=== PATIENT | female | born 1960 | race Caucasian/White ===

== ENCOUNTER 2016-12-04 16:49 | Inpatient (IN) | payer BC, OTHER ==
[~2016-12-04] VITALS: Ht 154.9 cm; Wt 85.0 kg
[2016-12-04 16:50] VITALS: BP 186/108; PULSE 113; RESP 18; TEMP 99.6; O2SAT 97
[2016-12-04] MEDS ORDERED: IOHEXOL 350 MG/ML 10 ML VIAL (for RAD DIAG) IVCONTRAST ONE (16:50)
[2016-12-04] MEDS ORDERED: LISI20TA3 PO (18:23)
[2016-12-04] MEDS ORDERED: MORPHINE SULFATE 4 MG/ML INJ IV PUSH ONE (18:30)
[2016-12-04] MEDS ORDERED: SODIUM CHLOR 0.9% 1000 ML INJ 1,000 ML IV ONE (18:30)
[2016-12-04] MEDS ORDERED: VANCOMYCIN INJ 1,300 MG in SODIUM CHLORID 0.9% 500 ML INJ 500 ML IV ONE (18:30)
[2016-12-04 19:18] LABS: AUTOMATED NEUTROPHIL # 11.4 TH/MM3 (1.8-7.7); BASOPHIL # 0.1 TH/MM3 (0-0.2); BASOPHIL % 0.7 % (0.0-2.0); EOSINOPHIL # 0.1 TH/MM3 (0-0.4); EOSINOPHIL % 0.5 % (0.0-4.0); HEMATOCRIT 41.7 % (35.0-46.0); HEMO FLAGS DIFF FINAL; LYMPH % 14.7 % (9.0-44.0); LYMPHOCYTE # 2.1 TH/MM3 (1.0-4.8); MEAN CELL VOLUME 95.3 FL (80.0-100.0); MEAN CORPUSCULAR HEMOGLOBIN 32.6 PG (27.0-34.0); MEAN CORPUSCULAR HGB CONC 34.2 % (32.0-36.0); MONO % 5.5 % (0.0-8.0); NEUT % 78.6 % (16.0-70.0); PLATELET COUNT 287 TH/MM3 (150-450); RED BLOOD COUNT 4.38 MIL/MM3 (4.00-5.30); RED CELL DISTRIBUTION WIDTH 12.7 % (11.6-17.2); WHITE BLOOD COUNT 14.5 TH/MM3 (4.0-11.0)
[2016-12-04 19:24] LABS: APTT (PATIENT) 26.8 SEC (24.3-30.1); PROTHROMBIN TIME - PATIENT 11.4 SEC (9.8-11.6)
[2016-12-04 19:32] LABS: ANION GAP 7 MEQ/L (5-15); AST (GOT) 17 U/L (15-37); BICARBONATE 29.5 MEQ/L (21.0-32.0); BLOOD UREA NITROGEN 10 MG/DL (7-18); CHLORIDE 98 MEQ/L (98-107); GLOMERULAR FILTRATION RATE 72 ML/MIN (>89); POTASSIUM 3.7 MEQ/L (3.5-5.1); SODIUM (NA) 134 MEQ/L (136-145)
[2016-12-04 19:33] LABS: ALT (GPT) 23 U/L (10-53)
[2016-12-04 19:35] LABS: ALKALINE PHOSPHATASE 84 U/L (45-117); TOTAL BILIRUBIN ADULT 0.6 MG/DL (0.2-1.0)
--- NOTE | 2016-12-04 20:18 | RADRPT ---
EXAM DATE/TIME: 12/04/2016 19:57 [place] COMPARISON: No previous studies available for comparison. INDICATIONS : Abscess tooth IV CONTRAST: 70 cc Omnipaque 350 (iohexol) IV RADIATION DOSE: 38.39 CTDIvol (mGy) MEDICAL HISTORY : None SURGICAL HISTORY : Appendectomy. Cholecystectomy.Hysterectomy. ENCOUNTER: Initial ACUITY: 1 day PAIN SCALE: 10/10 LOCATION: Right facial TECHNIQUE: Volumetric scanning of the facial bones was performed. Using automated exposure control and adjustme nt of the mA and/or kV according to patient size, radiation dose was kept as low as reasonably achiev able to obtain optimal diagnostic quality images. DICOM format image data is available electronicall y for review and comparison. FINDINGS: ORBITS: The orbital and infraorbital osseous structures are intact. The retroconal structures have a normal configuration. No radiopaque foreign bodies are seen. NASAL BONE: The nasal bone and maxillary spine are intact ZYGOMATIC ARCHES: Symmetric without evidence of fracture. SINUSES: The maxillary, ethmoid and frontal sinuses are intact. No air-fluid levels seen. NASAL CAVITY: The nasal septum is intact and midline. The lacrimal ducts are intact. SOFT TISSUES: There are nonspecific inflammatory changes in the soft tissues along the right mandible and deep as w ell as subcutaneous fat without organized abscess. INTRACRANIAL: No intracranial air seen. CRIBIFORM PLATE: Grossly intact. CONCLUSION: Nonspecific soft tissue inflammatory change along the right mandible both deep and superficial soft t issues without abscess formation or fluid collection. Could be related to dental disease Otoniel Myers MD on December 04, 2016 at 20:14 Board Certified Radiologist. This report was verified electronically.
[2016-12-04] MEDS ORDERED: MORPHINE SULFATE 2 MG/ML INJ IV PUSH ONE (20:45)
[2016-12-04] MEDS ORDERED: MORPHINE SULFATE 2 MG/ML INJ IV PUSH PRN (21:15)
[2016-12-04] MEDS ORDERED: SODIUM CHLORIDE 0.9% FLUSH 10 ML FLUSH IV FLUSH PRN (21:15)
[2016-12-04] MEDS ORDERED: NALOXONE HCL 0.4 MG/ML AMP IV PUSH PRN (21:15)
[2016-12-04 22:04] VITALS: BP 123/68; PULSE 107; RESP 14; O2SAT 98
--- NOTE | 2016-12-04 22:38 | PD ---
HPI Chief Complaint: Oral / Dental Pain or Problem Time Seen by Provider: 18:20 Travel History International Travel<30 days: No Contact w/Intl Traveler<30days: No Traveled to known affect area: No History of Present Illness HPI This is a 56-year-old female who presents to the emergency department with right sided facial swelling and pain, constant, moderate severity, that started yesterday and has rapidly progressed today. She went to see a dentist and he told her to come to the emergency department because he was concerned she may progress to bloodstream infection. She says she does feel feverish. She denies any difficulty swallowing or breathing. [facility] Past Medical History Hypertension: Yes Past Surgical History Abdominal Surgery: Yes (CHOLECTOMY) Appendectomy: Yes Gynecologic Surgery: Yes (OOPHERECTOMY) Social History Alcohol Use: No Tobacco Use: No (QUIT) Substance Use: No Allergies-Medications (Allergen,Severity, Reaction): Coded Allergies: No Known Allergies (Unverified , 12/04/16) Reported Meds & Prescriptions Reported Meds & Active Scripts Active Reported Lisinopril-Hctz 20-25 Mg Tab 1 Tab PO DAILY Review of Systems Except as stated in HPI: all other systems reviewed are Neg Physical Exam Narrative GENERAL:Well appearing, no acute distress SKIN: Focused skin assessment warm and dry. HEAD: Atraumatic. Normocephalic. EYES: Pupils equal and round. No injection or drainage. ENT: Moist mucous membranes. Fullness, erythema and warmth of the right mandible with no submental swelling or sublingual swelling. NECK: Trachea midline. CARDIOVASCULAR: Regular rate and rhythm. No murmur appreciated. RESPIRATORY: Clear to auscultation. Breath sounds equal bilaterally. GASTROINTESTINAL: Abdomen soft, non-tender, nondistended. MUSCULOSKELETAL: No obvious deformities. NEUROLOGICAL: Awake and alert. No obvious cranial nerve deficits. Moving all extremities. PSYCHIATRIC: Appropriate mood and affect; insight and judgment normal. Data Data Last Documented VS Vital Signs Date Time Temp Pulse Resp B/P (MAP) Pulse Ox O2 Delivery O2 Flow Rate FiO2 12/04/16 16:50 99.6 113 18 186/108 (134) 97 Orders Orders Complete Blood Count With Diff (12/04/16 18:24) Comprehensive Metabolic Panel (12/04/16 18:24) ^ Insert Iv (12/04/16 18:24) Prothrombin Time / Inr (Pt) (12/04/16 18:24) Act Partial Throm Time (Ptt) (12/04/16 18:24) Blood Culture (12/04/16 18:24) Sodium Chlor 0.9% 1000 Ml Inj (Ns 1000 M (12/04/16 18:30) Lactic Acid (12/04/16 18:24) Vancomycin Inj (Vancomycin Inj) (12/04/16 18:30) Morphine Inj (Morphine Inj) (12/04/16 18:30) Ct Facial Bones W Iv Contrast (12/04/16 ) Iohexol 350 Inj (Omnipaque 350 Inj) (12/04/16 16:50) Morphine Inj (Morphine Inj) (12/04/16 20:45) Admit Order (Ed Use Only) (12/04/16 20:57) Labs Laboratory Tests Test 12/04/16 18:45 White Blood Count 14.5 TH/MM3 Red Blood Count 4.38 MIL/MM3 Hemoglobin 14.3 GM/DL Hematocrit 41.7 % Mean Corpuscular Volume 95.3 FL Mean Corpuscular Hemoglobin 32.6 PG Mean Corpuscular Hemoglobin Concent 34.2 % Red Cell Distribution Width 12.7 % Platelet Count 287 TH/MM3 Mean Platelet Volume 8.8 FL Neutrophils (%) (Auto) 78.6 % Lymphocytes (%) (Auto) 14.7 % Monocytes (%) (Auto) 5.5 % Eosinophils (%) (Auto) 0.5 % Basophils (%) (Auto) 0.7 % Neutrophils # (Auto) 11.4 TH/MM3 Lymphocytes # (Auto) 2.1 TH/MM3 Monocytes # (Auto) 0.8 TH/MM3 Eosinophils # (Auto) 0.1 TH/MM3 Basophils # (Auto) 0.1 TH/MM3 CBC Comment DIFF FINAL Differential Comment Prothrombin Time 11.4 SEC Prothromb Time International Ratio 1.0 RATIO Activated Partial Thromboplast Time 26.8 SEC Blood Urea Nitrogen 10 MG/DL Creatinine 0.82 MG/DL Random Glucose 153 MG/DL Total Protein 8.3 GM/DL Albumin 4.2 GM/DL Calcium Level 9.7 MG/DL Alkaline Phosphatase 84 U/L Aspartate Amino Transf (AST/SGOT) 17 U/L Alanine Aminotransferase (ALT/SGPT) 23 U/L Total Bilirubin 0.6 MG/DL Sodium Level 134 MEQ/L Potassium Level 3.7 MEQ/L Chloride Level 98 MEQ/L Carbon Dioxide Level 29.5 MEQ/L Anion Gap 7 MEQ/L Estimat Glomerular Filtration Rate 72 ML/MIN Lactic Acid Level 1.3 mmol/L MDM Medical Decision Making Medical Screen Exam Complete: Yes Emergency Medical Condition: Yes Interpretation(s) Temperature is 99.6, tachycardic, hypertensive Leukocytosis electrolytes within normal limits Last [address] 12/04/16 0000 Signed Impressions: Service Date/Time: November 19:57 - CONCLUSION: Nonspecific soft tissue inflammatory change along the right mandible both deep and superficial soft tissues without abscess formation or fluid collection. Could be related to dental disease Otoniel Myers MD Differential Diagnosis Abscess, cellulitis, Rios angina, sepsis Narrative Course This is a 56-year-old female who presents to the emergency department with swelling and pain involving her right mandible. She likely has a dental abscess. Labs are obtained which demonstrate a leukocytosis. She was given one dose of vancomycin in the emergency department in the setting of tachycardia and leukocytosis. CT demonstrates soft tissue swelling but no definitive abscess and no signs of Rios's angina. She will be admitted to the hospitalist service for antibiotic therapy Physician Communication Physician Communication Discussed with Dr. Salazar Diagnosis Primary Impression: Dental infection Admitting Information Admitting Physician Requests: Observation Iman Deleon MD Dec 04, 2016 22:38
--- NOTE | 2016-12-04 22:52 | HHI.HP ---
HPI Service [facility] Primary Care Physician Cornelio Lynne M.D. Admission Diagnosis dental infection Diagnoses: Chief Complaint: Right mandibular pain and swelling Travel History International Travel<30 Days: No Contact w/Intl Traveler <30 Da: No Traveled to Known Affected Are: No History of Present Illness Written by Shruthi Ortiz, acting as scribe for Dr. Salazar on 12/04/16 at 22:52. The patient has a "broken" tooth (#30) that she's been having problems with. The patient states she saw her dentist (Dr. Estrada in [place]) and he referred her to an OMFS to drain a presumed abscess. The [place] [facility] said he could not get her in and referred her to the ER here at [facility]. Right mandible swelling with severe pain not relieved by over the counter acetaminophen, aleve, or local anesthetics. Pain is "throbbing" and improved with Morphine 4 mg IV but not at all with Morphine 2 mg IV. Symptoms started last night (12/03/16). Temperature of 99. Bleeding this a.m. when brushed teeth. Denies any purulent exudate from the area. Denies any dental implants. Past two weeks: denies chest pain, cough, shortness of breath, syncope, nausea, vomiting, diarrhea, black stool or red stool. Review of Systems Except as stated in HPI: all other systems reviewed are Neg Past Family Social History Past Medical History Hypertension Diverticulitis s/p oliver-colectomy Denies diabetes, valvular heart disease, CAD, [place], breathing problems, liver or kidney problems, PE, DVT, CVA, seizures, or thyroid problems . Past Surgical History Oliver-colectomy, Appendectomy, Oophorectomy October 2014 Cholecystectomy Lithotripsy . Reported Medications Reported Meds & Active Scripts Active Reported Lisinopril-Hctz 20-25 Mg Tab 1 Tab PO DAILY . Allergies: Coded Allergies: No Known Allergies (Unverified , 12/04/16) Active Ordered Medications Current Medications Sodium Chloride 1,000 ml @ 999 mls/hr BOLUS ONCE IV Last administered on t 18:52; Start 12/04/16 at 18:30; Stop 12/04/16 at 19:30; Status DC Vancomycin HCl 1300 mg/Sodium Chloride 513 ml @ 250 mls/hr ONCE ONCE IV Last administered on 12/04/16 18:52; Start 12/04/16 at 18:30; Stop 12/04/16 at 20 :33; Status DC Morphine Sulfate (Morphine Inj) 4 mg ONCE ONCE IV PUSH Last administered on 18:53; Start 12/04/16 at 18:30; Stop 12/04/16 at 18:31; Status DC Iohexol (Omnipaque 350 Inj) 70 ml STK-MED ONCE IVCONTRAST Last administered on 12/04/16 16:50; Start 12/04/16 at 16:50; Stop 12/04/16 at 20:02; Status DC Morphine Sulfate (Morphine Inj) 2 mg ONCE ONCE IV PUSH Last administered on 21:11; Start 12/04/16 at 20:45; Stop 12/04/16 at 20:46; Status DC Sodium Chloride (NS Flush) 2 ml UNSCH PRN IV FLUSH FLUSH AFTER USING IV ACCESS ; Start 12/04/16 at 21:15 Sodium Chloride (NS Flush) 2 ml BID IV FLUSH ; Start 12/05/16 at 09:00 Naloxone HCl (Narcan Inj) 0.4 mg UNSCH PRN IV PUSH SEE LABEL COMMENTS; Start 12/04/16 at 21:15 Ampicillin Sodium/ Sulbactam Sodium 3 gm/Sodium Chloride 100 ml @ 200 mls/hr Q6H IV ; Start 12/04/16 at 22:00 Morphine Sulfate (Morphine Inj) 2 mg Q3H PRN IV PUSH PAIN >5 Last administered on 12/04/16 21:39; Start 12/04/16 at 21:15 . Family History Mother with cervical cancer Father with ALS . Social History Tobacco: quit 3 years ago Alcohol: denies Illicit Drugs: denies . Physical Exam Vital Signs Vital Signs Date Time Temp Pulse Resp B/P (MAP) Pulse Ox O2 Delivery O2 Flow Rate FiO2 12/04/16 22:04 107 14 123/68 (86) 98 Room Air 12/04/16 16:50 99.6 113 18 186/108 (134) 97 Physical Exam GENERAL: This is a overweight female patient, in no apparent distress. SKIN: No rashes. Cool and dry. HEAD: Atraumatic. Normocephalic. EYES: No scleral icterus. No injection or drainage. ENT: Nose without bleeding, purulent drainage or septal hematoma. Airway patent. Right mandible with significant tenderness and edema. NECK: Trachea midline. No JVD. CARDIOVASCULAR: Regular rate and rhythm without murmurs, gallops, or rubs. RESPIRATORY: Clear to auscultation. Breath sounds equal bilaterally. No wheezes , rales, or rhonchi. GASTROINTESTINAL: Abdomen soft, non-tender, nondistended. No guarding. MUSCULOSKELETAL: Extremities without clubbing, cyanosis, or edema. No calf tenderness. NEUROLOGICAL: Awake and alert. Motor and sensory grossly within normal limits. Normal speech. . Laboratory Laboratory Tests Test 12/04/16 18:45 White Blood Count 14.5 Red Blood Count 4.38 Hemoglobin 14.3 Hematocrit 41.7 Mean Corpuscular Volume 95.3 Mean Corpuscular Hemoglobin 32.6 Mean Corpuscular Hemoglobin Concent 34.2 Red Cell Distribution Width 12.7 Platelet Count 287 Mean Platelet Volume 8.8 Neutrophils (%) (Auto) 78.6 Lymphocytes (%) (Auto) 14.7 Monocytes (%) (Auto) 5.5 Eosinophils (%) (Auto) 0.5 Basophils (%) (Auto) 0.7 Neutrophils # (Auto) 11.4 Lymphocytes # (Auto) 2.1 Monocytes # (Auto) 0.8 Eosinophils # (Auto) 0.1 Basophils # (Auto) 0.1 CBC Comment DIFF FINAL Differential Comment Prothrombin Time 11.4 Prothromb Time International Ratio 1.0 Activated Partial Thromboplast Time 26.8 Blood Urea Nitrogen 10 Creatinine 0.82 Random Glucose 153 Total Protein 8.3 Albumin 4.2 Calcium Level 9.7 Alkaline Phosphatase 84 Aspartate Amino Transf (AST/SGOT) 17 Alanine Aminotransferase (ALT/SGPT) 23 Total Bilirubin 0.6 Sodium Level 134 Potassium Level 3.7 Chloride Level 98 Carbon Dioxide Level 29.5 Anion Gap 7 Estimat Glomerular Filtration Rate 72 Lactic Acid Level 1.3 Date/Time Source Procedure Growth Status 12/04/16 18:40 Blood Peripheral Aerobic Blood Culture Pending Received 12/04/16 18:40 Blood Peripheral Anaerobic Blood Culture Pending Received Result Diagram: 12/04/16 8676 12/04/16 1845 Imaging Last Impressions Maxillofacial CT 12/04/16 0000 Signed Impressions: Service Date/Time: November 19:57 - CONCLUSION: Nonspecific soft tissue inflammatory change along the right mandible both deep and superficial soft tissues without abscess formation or fluid collection. Could be related to dental disease MD Angelica Irivn VTE Risk Assessment Caprini VTE Risk Assessment: Mod/High Risk (score >= 2) Caprini Risk Assessment Model Point Value = 1 Point Value = 2 Point Value = 3 Point Value = 5 Age 41-60 Minor surgery BMI > 25 kg/m2 Swollen legs Varicose veins or History of unexplained or recurrent spontaneous Oral contraceptives or hormone replacement Sepsis (< 1 month) Serious lung disease, including pneumonia (< 1 month) Abnormal pulmonary function Acute myocardial infarction Congestive heart failure (< 1 month) History of inflammatory bowel disease Medical patient at bed rest Age 61-74 Arthroscopic surgery Major open surgery (> 45 min) Laparoscopic surgery (> 45 min) Malignancy Confined to bed (> 72 hours) Immobilizing plaster cast Central venous access Age >= 75 History of VTE Family history of VTE Factor V Leiden Prothrombin [id number] Lupus anticoagulant Anticardiolipin antibodies Elevated serum homocysteine Heparin-induced thrombocytopenia Other congenital or acquired thrombophilia Stroke (< 1 month) Elective arthroplasty Hip, pelvis, or leg fracture Acute spinal cord injury (< 1 month) Prophylaxis Regimen Total Risk Factor Score Risk Level Prophylaxis Regimen 0-1 Low Early ambulation 2 Moderate Order ONE of the following: *Sequential Compression Device (SCD) *Heparin 5000 units SQ BID 3-4 Higher Order ONE of the following medications: *Heparin 5000 units SQ TID *Enoxaparin/Lovenox 40 mg SQ daily (WT < 150 kg, CrCl > 30 mL/min) *Enoxaparin/Lovenox 30 mg SQ daily (WT < 150 kg, CrCl > 10-29 mL/min) *Enoxaparin/Lovenox 30 mg SQ BID (WT < 150 kg, CrCl > 30 mL/min) AND/OR *Sequential Compression Device (SCD) 5 or more Highest Order ONE of the following medications: *Heparin 5000 units SQ TID (Preferred with Epidurals) *Enoxaparin/Lovenox 40 mg SQ daily (WT < 150 kg, CrCl > 30 mL/min) *Enoxaparin/Lovenox 30 mg SQ daily (WT < 150 kg, CrCl > 10-29 mL/min) *Enoxaparin/Lovenox 30 mg SQ BID (WT < 150 kg, CrCl > 30 mL/min) AND *Sequential Compression Device (SCD) Assessment and Plan Problem List: (1) Dental infection ICD Code: K04.7 - Periapical abscess without sinus Status: Acute Assessment and Plan Right mandibular infection Suspect Abscess - Maxillofacial CT showed nonspecific soft tissue inflammatory changes seen right mandible area in both deep and superficial tissues without abscess or fluid collection seen - history and exam c/w abscess however. - Antibiotics: Unasyn 3 grams IV q6h - Decadron 10 mg IV x 1 dose, then 4 mg IV q6h - verbally ordered - Morphine will be increased to 4 mg IV q3h PRN pain > 5 - verbally ordered - consult OMFS - discussed with ER MD- she will write an email to ER director, Hospitalist director and FRONT ATTENDANT to inform of the patient's case so that pt will be seen by maxilofacial surgeon tomorrow am per hospital consult policy. GI prophylaxis - Protonix 40 mg IV q24h - verbally ordered DVT prophylaxis - SCDs/TEDs verbally ordered . This note was transcribed by scribyoav [Shruthi Ortiz]. I, Dr. Chio Salazar personally performed the history, physical exam, and medical decision making; and confirmed the accuracy of the information in the transcribed note. Authenticated by Dr. Chio Salazar on 12/04/16 at 22:52. Discussed Condition With ER physician, patient, and patient's . Shruthi Ortiz Dec 04, 2016 22:52 Chio Salazar MD Dec 05, 2016 01:33
[2016-12-04] MEDS ORDERED: DEXAMETHASONE SOD PHOS 20 MG/5 ML VIAL IV PUSH ONE (23:00)
[2016-12-04 23:04] VITALS: BP 127/66; PULSE 100; RESP 16; TEMP 101; O2SAT 95
[2016-12-04] MEDS: PANTOPRAZOLE SODIUM 40 MG VIAL IV PUSH SCH (23:50)
[2016-12-04] MEDS: AMPICILLIN-SULBACTAM INJ 3 GM in SODIUM CHLORIDE 0.9% INJ 100 ML IV SCH (23:50)
[2016-12-05 03:51] VITALS: PULSE 85
[2016-12-05 04:35] VITALS: BP 115/59; PULSE 80; RESP 17; TEMP 99.7; O2SAT 93
[2016-12-05] MEDS: AMPICILLIN-SULBACTAM INJ 3 GM in SODIUM CHLORIDE 0.9% INJ 100 ML IV SCH ×4 (05:31→23:21)
[2016-12-05] MEDS: DEXAMETHASONE SOD PHOS 4 MG/ML VIAL IV PUSH SCH ×3 (05:32→16:00)
[2016-12-05] MEDS: MORPHINE SULFATE 4 MG/ML INJ IV PRN ×6 (05:32→23:19)
[2016-12-05 08:00] VITALS: PULSE 76
[2016-12-05 08:08] LABS: AUTOMATED NEUTROPHIL # 9.2 TH/MM3 (1.8-7.7); BASOPHIL % 0.2 % (0.0-2.0); HEMATOCRIT 38.4 % (35.0-46.0); HEMO FLAGS DIFF FINAL; LYMPH % 9.6 % (9.0-44.0); MEAN CELL VOLUME 94.6 FL (80.0-100.0); MEAN CORPUSCULAR HEMOGLOBIN 32.1 PG (27.0-34.0); MEAN CORPUSCULAR HGB CONC 33.9 % (32.0-36.0); MONO % 1.1 % (0.0-8.0); NEUT % 89.1 % (16.0-70.0); PLATELET COUNT 279 TH/MM3 (150-450); RED BLOOD COUNT 4.06 MIL/MM3 (4.00-5.30); RED CELL DISTRIBUTION WIDTH 12.6 % (11.6-17.2); WHITE BLOOD COUNT 10.3 TH/MM3 (4.0-11.0)
[2016-12-05 08:16] LABS: BICARBONATE 26.4 MEQ/L (21.0-32.0); POTASSIUM 3.6 MEQ/L (3.5-5.1)
[2016-12-05 08:23] VITALS: BP 133/72; PULSE 87; RESP 18; TEMP 98.3; O2SAT 91
[2016-12-05] MEDS: LISINOPRIL 20 MG TAB PO SCH (08:29)
[2016-12-05] MEDS: SODIUM CHLORIDE 0.9% FLUSH 10 ML FLUSH IV FLUSH SCH ×2 (08:30→21:00)
[2016-12-05] MEDS: SODIUM CHLOR 0.9% 1000 ML INJ 1,000 ML IV SCH (08:31)
[2016-12-05 10:54] VITALS: BP 114/58; PULSE 80; RESP 16; TEMP 98.4; O2SAT 94
[2016-12-05] MEDS ORDERED: PHENYLEPH/NS 1000 MCG/10 ML SYR IV ONE (12:00)
[2016-12-05] MEDS ORDERED: ONDANSETRON HCL 4 MG/2 ML VIAL IV PUSH ONE (12:00)
[2016-12-05] MEDS ORDERED: DEXAMETHASONE SOD PHOS 4 MG/ML VIAL IV ONE (12:00)
[2016-12-05] MEDS ORDERED: LIDOCAINE HCL 1% PF 5 ML AMPULE OTHER ONE (12:00)
[2016-12-05] MEDS ORDERED: SUCCINYLCHOLINE CHLORIDE 100 MG/5 ML SYRINGE IV PUSH ONE (12:00)
[2016-12-05] MEDS ORDERED: PROPOFOL 200 MG/20 ML AMP IV ONE (12:00)
[2016-12-05] MEDS ORDERED: ROCURONIUM INJ 50 MG/5 ML SYRINGE IV PUSH ONE (12:00)
--- NOTE | 2016-12-05 13:11 | HHI.PR ---
Subjective Remarks Follow up for right sided mandibular infection. Patient reports feeling better today. Prior to coming to the hospital, she had more swelling, erythema and her lips skin was tightened. She reports no airway issues and able to tolerate soft diet and liquids. No fever, chills. Objective Vitals Vital Signs Date Time Temp Pulse Resp B/P (MAP) Pulse Ox O2 Delivery O2 Flow Rate FiO2 12/05/16 10:54 98.4 80 16 114/58 (76) 94 12/05/16 08:23 98.3 87 18 133/72 (92) 91 12/05/16 08:00 76 12/05/16 04:35 99.7 80 17 115/59 (77) 93 12/05/16 03:51 85 12/04/16 23:04 101.0 100 16 127/66 (86) 95 12/04/16 22:35 12/04/16 22:04 107 14 123/68 (86) 98 Room Air 12/04/16 16:50 99.6 113 18 186/108 (134) 97 I/O 12/04/16 12/04/16 12/04/16 12/05/16 12/05/16 12/05/16 07:00 15:00 23:00 07:00 15:00 23:00 Intake Total 1500 ml 450 ml Output Total 200 ml Balance 1500 ml 250 ml Intake Oral 250 ml IV Total 1500 ml 200 ml Output Urine Total 200 ml Result Diagram: 12/05/16 0655 12/05/16 0704 Imaging Last Impressions Maxillofacial CT 12/04/16 0000 Signed Impressions: Service Date/Time: November 19:57 - CONCLUSION: Nonspecific soft tissue inflammatory change along the right mandible both deep and superficial soft tissues without abscess formation or fluid collection. Could be related to dental disease Otoniel Myers MD Objective Remarks GENERAL: Alert, Oriented x 3, NAD. SKIN: Warm and dry. HEAD: Normocephalic. Right mandibular area is tender to palpation and swollen. There is some exudates along her gum and right lower posterior teeth. No bleeding. EYES: No scleral icterus. No injection or drainage. NECK: Supple, trachea midline. No JVD or lymphadenopathy. CARDIOVASCULAR: Regular rate and rhythm without murmurs, gallops, or rubs. RESPIRATORY: Breath sounds equal bilaterally. No accessory muscle use. GASTROINTESTINAL: Abdomen soft, non-tender, nondistended. MUSCULOSKELETAL: No cyanosis, or edema. BACK: Nontender without obvious deformity. No CVA tenderness. A/P Problem List: (1) Dental infection ICD Code: K04.7 - Periapical abscess without sinus Status: Acute Assessment and Plan Ms. Spencer is a pleasant 56 year old female who was evaluated by her dentist in [place] for possible dental abscess. She was referred to an outpatient oral surgeon. Unfortunately, the oral surgeon could not see her and instead referred her to [place]. Patient reported significant erythema, swelling and pain of her right mandibular area. She reports that this is one of the most painful experiences she has ever dealt with. - Right sided mandibular infection. - CT scan showed no abscess. Patient is currently on Unasyn 3g Q6hrs. - We do not have access to an oral surgery consult today. - We contacted Plastic surgery (Dr. Meraz) who has been kind enough to consider doing I&D today. - Patient will likely need IV abx and then oral Augmentin. She can then follow up with her dentist to extract affected teeth. - Will d/c Decadron. - Continue Morphine IV for pain. Will switch to Oral Pain medications tomorrow. - Hypertension - Continue Lisinopril 20mg Qday. - GERD - continue PPI. Full code. SCDs, Ambulation. Discharge plan: Possible discharge over the weekend. Anne Marie Byrd DO Dec 05, 2016 13:11
[2016-12-05] MEDS ORDERED: LACTATED RINGER'S 1000 ML IV PRN (16:45)
[2016-12-05] MEDS ORDERED: CHLORHEXIDINE GLUCONATE 2 % 1 PACK (2 CLOTHS) TOPICAL PRN (16:45)
[2016-12-05] MEDS ORDERED: METOPROLOL TARTRATE 25 MG TAB PO PRN ×2 (16:45→21:45)
[2016-12-05] MEDS ORDERED: INSULIN HUMAN REGULAR 1,000 UNITS/10 ML VIAL SQ PRN ×2 (16:45→21:45)
[2016-12-05] MEDS ORDERED: POVIDONE IODINE 5% (ANTISEPSIS KIT) 4 APPLICATIONS EACH NARE PRN ×2 (16:45→21:45)
[2016-12-05] MEDS ORDERED: SODIUM CHLORID 0.9% 500 ML IV PRN (16:45)
[2016-12-05 16:54] VITALS: BP 117/62; PULSE 72; RESP 18; TEMP 98.4; O2SAT 95
[2016-12-05] MEDS ORDERED: LIDOCAINE 1%/EPINEPHrine 1:100,000 SOLN 50 ML VIAL ONE (18:20)
[2016-12-05] MEDS ORDERED: BACITRACIN TOP OINT 15 GM TUBE ONE (18:20)
[2016-12-05] MEDS ORDERED: BUPIVACAINE/EPINEPHRINE 0.5% 50 ML VIAL ONE (18:20)
[2016-12-05] MEDS ORDERED: BUPIVACAINE HCL PF 0.5% 30 ML VIAL ONE (18:20)
--- NOTE | 2016-12-05 21:37 | PD.OP ---
Operative Report Right side dental abscess in gingivolabial sulcus soft tissue premolar area mandible Postoperative Diagnosis: Right side dental abscess in gingivolabial sulcus soft tissue premolar area mandible Procedure: Incision and drainage Right side mandible gingivolabial sulcus abscess premolar area Anesthesia: gen Surgeon: Parminder Meraz Rn Medicare(s): rn Resident Surgeon: none Operation and Findings: Prep done Time out done Airway protected by ET cuff Right side lower jaw abscess against the premolar area injected all soft tissues surrounding it with Sensorcaine 0.5% with Epi 5 cc Opened the abscess with coag bovie - 2 cc pus was recovered, culture taken, pus was thick creamy yellow, no smell, no gas. no blood. Cavity curetted, irrigated and cauterized and packed with iodoform strip. Part of strip taped to outside the mouth to chin Minimal Bleeding No complications. Praminder Meraz MD Dec 05, 2016 21:37
[2016-12-05] MEDS ORDERED: DO NOT ADM ANY ANTICOAGULANT DRUGS PRN (21:59)
[2016-12-05] MEDS: PANTOPRAZOLE SODIUM 40 MG VIAL IV PUSH SCH (23:20)
[2016-12-06] VITALS (8 sets, daily range): BP systolic 99–170; BP diastolic 54–76; PULSE 66–97; RESP 18–21; TEMP 97.6–98.4; O2SAT 94–100
[2016-12-06] MEDS: MORPHINE SULFATE 4 MG/ML INJ IV PRN ×3 (03:10→16:25)
[2016-12-06] MEDS: AMPICILLIN-SULBACTAM INJ 3 GM in SODIUM CHLORIDE 0.9% INJ 100 ML IV SCH ×4 (03:11→21:02)
[2016-12-06] MEDS: SODIUM CHLOR 0.9% 1000 ML INJ 1,000 ML IV SCH ×3 (03:13→21:01)
[2016-12-06] MEDS: SODIUM CHLORIDE 0.9% FLUSH 10 ML FLUSH IV FLUSH SCH ×2 (08:31→21:02)
[2016-12-06] MEDS: LISINOPRIL 20 MG TAB PO SCH (08:31)
[2016-12-06] MEDS ORDERED: ACETAMINOPHEN 500 MG CPLT PO PRN (09:45)
[2016-12-06] MEDS ORDERED: PNEUMOCOCCAL POLYVALENT INJ 25 MCG/0.5 ML SYR IM ONE (10:00)
[2016-12-06] MEDS ORDERED: INFLUENZA VIRUS VACCINE (QUADRIVALENT) 0.5 ML SYR IM ONE (10:00)
--- NOTE | 2016-12-06 14:33 | HHI.PR ---
Subjective Remarks Follow-up for right-sided dental abscess. Patient is currently doing well. She will underwent I&D yesterday. No fever or chills. Objective Vitals Vital Signs Date Time Temp Pulse Resp B/P (MAP) Pulse Ox O2 Delivery O2 Flow Rate FiO2 12/06/16 12:00 97.8 69 18 136/76 (96) 100 12/06/16 08:00 97.7 68 18 118/59 (78) 96 12/06/16 07:40 96 21 12/06/16 04:40 97.6 67 20 99/57 (71) 94 12/06/16 00:00 98.3 97 21 111/62 (78) 94 12/05/16 22:00 100 21 105/59 (74) 92 Nasal Cannula 2 12/05/16 21:45 112 22 113/56 (75) 93 Nasal Cannula 2 12/05/16 21:41 97.8 116 18 115/58 (77) 91 Nasal Cannula 2 12/05/16 19:00 97.5 82 10 132/79 (96) 95 12/05/16 16:54 98.4 72 18 117/62 (80) 95 I/O 12/05/16 12/05/16 12/05/16 12/06/16 12/06/16 12/06/16 07:00 15:00 23:00 07:00 15:00 23:00 Intake Total 810 ml 532 ml 547 ml 100 ml Output Total 200 ml 5 ml Balance 610 ml 532 ml 542 ml 100 ml Intake Oral 610 ml IV Total 200 ml 532 ml 447 ml 100 ml Other 100 ml Output Urine Total 200 ml Estimated Blood Loss 5 ml # Voids 2 2 2 # Bowel Movements 0 0 Result Diagram: 12/05/16 0655 12/05/16 0704 Imaging Last Impressions Maxillofacial CT 12/04/16 0000 Signed Impressions: Service Date/Time: November 19:57 - CONCLUSION: Nonspecific soft tissue inflammatory change along the right mandible both deep and superficial soft tissues without abscess formation or fluid collection. Could be related to dental disease Otoniel Myers MD Objective Remarks GENERAL: Alert, Oriented x 3, NAD. SKIN: Warm and dry. HEAD: Normocephalic. Right mandibular area is tender to palpation and swollen. There is some exudates along her gum and right lower posterior teeth. No bleeding. EYES: No scleral icterus. No injection or drainage. NECK: Supple, trachea midline. No JVD or lymphadenopathy. CARDIOVASCULAR: Regular rate and rhythm without murmurs, gallops, or rubs. RESPIRATORY: Breath sounds equal bilaterally. No accessory muscle use. GASTROINTESTINAL: Abdomen soft, non-tender, nondistended. MUSCULOSKELETAL: No cyanosis, or edema. BACK: Nontender without obvious deformity. No CVA tenderness. A/P Problem List: (1) Dental infection ICD Code: K04.7 - Periapical abscess without sinus Status: Acute Assessment and Plan Ms. Spencer is a pleasant 56 year old female who was evaluated by her dentist in [place] for possible dental abscess. She was referred to an outpatient oral surgeon. Unfortunately, the oral surgeon could not see her and instead referred her to [place]. Patient reported significant erythema, swelling and pain of her right mandibular area. She reports that this is one of the most painful experiences she has ever dealt with. - Right sided mandibular infection. - CT scan showed no abscess. Patient is currently on Unasyn 3g Q6hrs. - Plastic surgery performed I&D on 12/05/2016. - Continue IV Unasyn today. We'll start Augmentin tomorrow. - Likely discharge tomorrow with outpatient dental follow-up. - Start acetaminophen, Percocet, morphine when necessary for pain management. - Hypertension - Continue Lisinopril 20mg Qday. - GERD - continue PPI. Full code. SCDs, Ambulation. Discharge plan: Possible discharge over the weekend. Anne Marie Byrd DO Dec 06, 2016 2:33 pm
[2016-12-06] MEDS: oxyCODONE/ACETAMINOPHEN 7.5 MG/325 MG TAB PO PRN ×2 (14:38→21:03)
[2016-12-06] MEDS ORDERED: LACTATED RINGER'S 1000 ML INJ 1,000 ML IV PRN (16:45)
[2016-12-06] MEDS ORDERED: SODIUM CHLORID 0.9% 500 ML INJ 500 ML IV PRN (16:45)
--- NOTE | 2016-12-06 17:23 | EKG ---
Date Performed: 12/05/2016 Time Performed: 16:40:20 PTAGE: 56 years EKG: Sinus rhythm NORMAL ECG NO PREVIOUS TRACING DOCTOR: Lisbet Lafleur Interpretating Date/Time 12/06/2016 17:21:31
[2016-12-06] MEDS: PANTOPRAZOLE SODIUM 40 MG VIAL IV PUSH SCH (22:28)
[2016-12-07] VITALS: BP 91/52; PULSE 60; RESP 20; TEMP 97.9; O2SAT 97
[2016-12-07 02:35] VITALS: BP 102/62
[2016-12-07 04:00] VITALS: BP 98/82; PULSE 65; RESP 20; TEMP 87.1; O2SAT 94
[2016-12-07 07:49] VITALS: BP 108/53; PULSE 64; RESP 18; TEMP 97.8; O2SAT 96
[2016-12-07] MEDS: LISINOPRIL 20 MG TAB PO SCH (08:39)
[2016-12-07] MEDS: oxyCODONE/ACETAMINOPHEN 7.5 MG/325 MG TAB PO PRN (08:40)
[2016-12-07] MEDS: SODIUM CHLOR 0.9% 1000 ML INJ 1,000 ML IV SCH (08:42)
[2016-12-07] MEDS: SODIUM CHLORIDE 0.9% FLUSH 10 ML FLUSH IV FLUSH SCH (08:43)
[2016-12-07] MEDS ORDERED: AMOXICILLIN/CLAVULANATE K 875 MG TAB PO SCH (09:00)
[2016-12-07 09:09] VITALS: O2SAT 97
[2016-12-07] MEDS ORDERED: AMOX875T2 PO (10:40)
[2016-12-07] MEDS ORDERED: OXYC1TAB35 PO (10:40)
--- NOTE | 2016-12-07 10:43 | HHI.DS ---
Discharge Summary Admission Date Dec 05, 2016 at 7:38 am Discharge Date: Dec 07, 2016 Admitting Diagnosis dental infection (1) Dental infection ICD Code: K04.7 - Periapical abscess without sinus Status: Acute Procedures Incision and drainage Right side mandible gingivolabial sulcus abscess premolar area Brief History - From Admission The patient has a "broken" tooth (#30) that she's been having problems with. The patient states she saw her dentist (Dr. Estrada in [place]) and he referred her to an OM[facility] to drain a presumed abscess. The [place] [facility] said he could not get her in and referred her to the ER here at [facility] [place]. Right mandible swelling with severe pain not relieved by over the counter acetaminophen, aleve, or local anesthetics. Pain is "throbbing" and improved with Morphine 4 mg IV but not at all with Morphine 2 mg IV. Symptoms started last night (12/03/16). Temperature of 99. Bleeding this a.m. when brushed teeth. Denies any purulent exudate from the area. Denies any dental implants. Past two weeks: denies chest pain, cough, shortness of breath, syncope, nausea, vomiting, diarrhea, black stool or red stool. CBC/BMP: 12/05/16 0655 12/05/16 0704 Significant Findings Laboratory Tests Test 12/04/16 18:45 12/05/16 06:55 12/05/16 07:04 White Blood Count 14.5 TH/MM3 (4.0-11.0) Neutrophils (%) (Auto) 78.6 % (16.0-70.0) 89.1 % (16.0-70.0) Neutrophils # (Auto) 11.4 TH/MM3 (1.8-7.7) 9.2 TH/MM3 (1.8-7.7) Random Glucose 153 MG/DL (74-106) 190 MG/DL (74-106) Total Protein 8.3 GM/DL (6.4-8.2) Sodium Level 134 MEQ/L (136-145) Estimat Glomerular Filtration Rate 72 ML/MIN (>89) 83 ML/MIN (>89) Erythrocyte Sedimentation Rate 37 mm/hr (0-30) C-Reactive Protein 12.00 MG/DL (0.00-0.30) Imaging Last Impressions Maxillofacial CT 12/04/16 0000 Signed Impressions: Service Date/Time: , December 04, 2016 19:57 - CONCLUSION: Nonspecific soft tissue inflammatory change along the right mandible both deep and superficial soft tissues without abscess formation or fluid collection. Could be related to dental disease Otoniel Myers MD PE at Discharge GENERAL: Alert, Oriented x 3, NAD. SKIN: Warm and dry. HEAD: Normocephalic. Right mandibular area is tender to palpation and swollen. There is some exudates along her gum and right lower posterior teeth. No bleeding. EYES: No scleral icterus. No injection or drainage. NECK: Supple, trachea midline. No JVD or lymphadenopathy. CARDIOVASCULAR: Regular rate and rhythm without murmurs, gallops, or rubs. RESPIRATORY: Breath sounds equal bilaterally. No accessory muscle use. GASTROINTESTINAL: Abdomen soft, non-tender, nondistended. MUSCULOSKELETAL: No cyanosis, or edema. BACK: Nontender without obvious deformity. No CVA tenderness. Pt update on day of discharge Patient is doing well. No acute concerns. Pain is better controlled. Tolerating food well. No fever, chills. Wants to go home today. Plastic surgery cleared for discharge. Hospital Course Ms. Spencer is a pleasant 56 year old female who was evaluated by her dentist in [place] for possible dental abscess. She was referred to an outpatient oral surgeon. Unfortunately, the oral surgeon could not see her and instead referred her to [place]. Patient reported significant erythema, swelling and pain of her right mandibular area. She reports that this is one of the most painful experiences she has ever dealt with. - Right sided mandibular infection. - CT scan showed no abscess. Patient received Unasyn 3g Q6hrs. - Plastic surgery performed I&D on 12/05/2016. - We switched her to Augmentin on 12/07/2016. - acetaminophen, Percocet, morphine when necessary for pain management. - Follow up with Dentist on 12/08/2016. - Hypertension - Continue Lisinopril 20mg Qday. - GERD - continue PPI. Pt Condition on Discharge: Good Discharge Disposition: Discharge Home Discharge Time: <= 30 minutes Discharge Instructions DIET: Follow Instructions for: As Tolerated, No Restrictions Activities you can perform: Regular-No Restrictions Follow up Referrals: Appointment for Follow Up - 2-3 Days with Dentist PCP Follow-up - 1 Week New Medications: Amoxicillin-Clavulanate (Amoxicillin-Clavulanate) 875-125 mg Tab 875 MG PO Q12HR for Infection, #20 TAB not for use in CrCl <30 mL/minute Oxycodone-Acetaminophen (Oxycodone-Acetaminophen) 7.5-325 mg Tab 1 TAB PO Q6H PRN for PAIN SCALE 5 TO 10, #20 TAB Continued Medications: Lisinopril-Hctz (Lisinopril-Hctz) 20-25 Mg Tab 1 TAB PO DAILY for Blood Pressure Management, #30 TAB 0 Refills Anne Marie Byrd DO Dec 07, 2016 10:43 am
== END 2016-12-07 12:49 | disposition home or self-care (01) | DRG 159 ==
LOC: NEPD 16:49 → NEDA 20:59 → NEPHCDU 23:01 → OBSVTOIN 12-05 07:38 → N05A 12-05 10:12
PROVIDERS: ADMIT Hospitalist; ATTEND Hospitalist
PROC: 0C960ZZ Drainage of Lower Gingiva, Open Approach (ICD-10-PCS; principal; 2016-12-05 21:05)
DX: K04.7 Periapical abscess without sinus (principal); I10 Essential (primary) hypertension; K21.9 Gastro-esophageal reflux disease without esophagitis; Z87.891 Personal history of nicotine dependence; Z23 Encounter for immunization
CPT/HCPCS: 70487; 80048; 80053; 83605; 85025; 85610; 85652; 85730; 86140; 87015; 87040; 87070; 87077; 87102; 87116; 87185; 87205; 87206; 90686; 90732; 93005; C9113; J0295; J0330; J1100; J2270; J2370; J2405; J3010; J3370; J7030; J7040; Q2038; Q9967